=== PATIENT | female | born 1995 | race African-American/Black ===

== ENCOUNTER 2017-04-13 16:23 | Emergency (ER) | END 2017-04-13 18:15 | disposition home or self-care (01) | DX: S93.601A Unspecified sprain of right foot, initial encounter (principal); S93.401A Sprain of unspecified ligament of right ankle, initial encounter; V78.4XXA Person boarding or alighting from bus injured in noncollision transport accident, initial encounter | CPT/HCPCS: 73610; 73630; Z7502; Z7610 ==